=== PATIENT | female | born 2000 | race American Indian/Alaskan Native ===

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

== ENCOUNTER 2021-12-24 01:52 | Emergency (ER) | payer MEDICAID, OTHER ==
[2021-12-24] MEDS ORDERED: IBUPROFEN 600 MG TAB PO ONE (02:12)
--- NOTE | 2021-12-24 02:17 | Emergency Department Report ---
ED Eye Problem HPI - General Chief complaint: Eye Problems Stated complaint: LT EYE PAIN Source: patient Mode of arrival: Ambulatory Limitations: No Limitations - History of Present Illness Initial comments: Patient is a 21-year-old -[place] female with no past medical history presents to the ED with complaint of acute onset persistent nontraumatic left eye pain with tearing and purulent discharge, blurry vision and headache for the last 12 hours. Patient states that the pain has been progressively getting worse over the last 12 hours. Patient states that no one else at home is had similar symptoms. Patient denies vision loss, dizziness, syncope, traumatic injury, nasal and sinus congestion, chest pain or shortness of breath, cough, ear pain, fever and chills. MD chief complaint: eye pain (LEFT ), eye redness, vision change (blurry) -: Sudden, hour(s) (12) Onset Description: sudden, unknown, awoke with symptoms Location: left eye Place: home If Injury: none Eye Symptoms: burning, redness, pain, discharge, photophobia Severity: severe Severity scale (0 -10): 7 If Pain, Quality: sharp, burning, throbbing Consistency: constant Associated Symptoms: headache. denies: neck pain, nausea/vomiting, cough, rhinorrhea, fever, shortness of breath Treatments Prior to Arrival: none - Related Data Patient Tetanus UTD: Yes Previous Rx's Medication Instructions Recorded Last Taken Type Gentamicin 0.3% Ophth Soln 1 drops OP Q4H #5 ml 12/24/21 Unknown Rx Ibuprofen [Motrin] 600 mg PO Q8H PRN #24 tablet 12/24/21 Unknown Rx Allergies Allergy/AdvReac Type Severity Reaction Status Date / Time No Known Allergies Allergy Unverified 06/03/19 09:26 ED Review of Systems ROS: Stated complaint: LT EYE PAIN Other details as noted in HPI Constitutional: denies: chills, fever Eyes: eye pain (left eye), eye discharge (left eye purulent discharge and tearing), vision change (blurry) ENT: denies: ear pain, throat pain Respiratory: denies: cough, shortness of breath, wheezing Cardiovascular: denies: chest pain, palpitations Endocrine: no symptoms reported Gastrointestinal: denies: abdominal pain, nausea, diarrhea Genitourinary: denies: urgency, dysuria, discharge Musculoskeletal: denies: back pain, joint swelling, arthralgia Skin: denies: rash, lesions Neurological: headache. denies: weakness, paresthesias Psychiatric: anxiety. denies: depression Hematological/Lymphatic: denies: easy bleeding, easy bruising ED Past Medical Hx - Social History Smoking Status: Never Smoker Substance Use Type: None - Medications Home Medications: Home Medications Medication Instructions Recorded Confirmed Last Taken Type Gentamicin 0.3% Ophth Soln 1 drops OP Q4H #5 ml 12/24/21 Unknown Rx Ibuprofen [Motrin] 600 mg PO Q8H PRN #24 tablet 12/24/21 Unknown Rx ED Physical Exam - General Limitations: No Limitations General appearance: alert, in no apparent distress, in distress - Head Head exam: Present: atraumatic, normocephalic, normal inspection - Eye Eye exam: Present: PERRL, EOMI, other (mildly erythematous left conjunctiva with tearing and mild purulent discharge) Pupils: Present: normal accommodation - ENT ENT exam: Present: normal exam, normal orophraynx, mucous membranes moist, TM's normal bilaterally, normal external ear exam - Neck Neck exam: Present: normal inspection, full ROM. Absent: tenderness - Respiratory Respiratory exam: Present: normal lung sounds bilaterally. Absent: respiratory distress, wheezes, rales, stridor, chest wall tenderness, accessory muscle use - Cardiovascular Cardiovascular Exam: Present: normal rhythm, bradycardia, normal heart sounds. Absent: systolic murmur, diastolic murmur, rubs, gallop - GI/Abdominal GI/Abdominal exam: Present: soft, normal bowel sounds. Absent: tenderness, guarding, rigid, hyperactive bowel sounds, organomegaly - Extremities Exam Extremities exam: Present: normal inspection, full ROM, normal capillary refill. Absent: tenderness, pedal edema, joint swelling - Back Exam Back exam: Present: normal inspection, full ROM. Absent: tenderness, CVA tenderness (R), CVA tenderness (L), muscle spasm, paraspinal tenderness, vertebral tenderness, rash noted - Neurological Exam Neurological exam: Present: alert, oriented X3, CN II-XII intact, normal gait, reflexes normal - Psychiatric Psychiatric exam: Present: normal affect, normal mood - Skin Skin exam: Present: warm, dry, intact, normal color. Absent: rash ED Course Vital Signs 12/24/21 01:57 Temperature 98.8 F Pulse Rate 57 L Respiratory 18 Rate Blood Pressure 120/76 O2 Sat by Pulse 100 Oximetry ED Medical Decision Making - Medical Decision Making This is a 21-year-old -[place] female with no past medical history presents to the ED with complaint of acute onset persistent nontraumatic left eye pain with tearing and purulent discharge, blurry vision and headache for the last 12 hours. Patient states that the pain has been progressively getting worse over the last 12 hours. Patient states that no one else at home is had similar symptoms. In the ED, patient is alert and oriented x3 and is not in any distress. Patient was treated in the ED for pain, and based on the history and physical exam findings, the patient symptoms are likely due to viral versus bacterial conjunctivitis in the absence of a history of traumatic injury to the left eye. On reevaluation, patient's pain is well controlled medication. Patient will discharge home on medications and advised to follow-up with her primary care physician or chairman and chief executive officer Dr. Ritchie for further evaluation. Patient is advised to contact Dr. Ritchie's office first thing in the morning on Saturday, December 25, 2021 to schedule a follow-up appointment. Patient advised return to the ED immediately if symptoms get worse. - Differential Diagnosis bacterial conjunctivitis; viral conjunctivitis; corneal abrasion Critical care attestation.: If time is entered above; I have spent that time in minutes in the direct care of this critically ill patient, excluding procedure time. ED Disposition Clinical Impression: Acute left eye pain Conjunctivitis of left eye Qualifiers: Conjunctivitis type: acute Acute conjunctivitis type: unspecified Qualified Code(s): H10.32 - Unspecified acute conjunctivitis, left eye Disposition: 01 HOME / SELF CARE / HOMELESS Is pt being admited?: No Does the pt Need Aspirin: No Condition: Stable Instructions: Bacterial Conjunctivitis, Adult, [id number], Viral Conjunctivitis, Adult Additional Instructions: Apply the medication to the affected eye, take pain medication as needed by mouth. Follow-up with the chairman and chief executive officer Dr. Ritchie in 3 to 5 days for reevaluation. Contact Dr. Ricthie's office first in the morning on Saturday, December 25, 2021 to schedule a follow-up appointment. Return to the ED immediately if symptoms get worse. Prescriptions: Gentamicin 0.3% Ophth Soln 1 drops OP Q4H #5 ml Ibuprofen [Motrin] 600 mg PO Q8H PRN #24 tablet PRN Reason: Pain Referrals: HAYDEE RITCHIE MD [Staff Physician] - 3-5 Days Time of Disposition: 02:20 Print Language: CITIZEN OF [place]
[2021-12-24 02:50] VITALS: BP 118/74
== END 2021-12-24 03:06 | disposition home or self-care (01) ==
LOC: ED 01:52
DX: H57.12 Ocular pain, left eye (principal); H10.32 Unspecified acute conjunctivitis, left eye
CPT/HCPCS: 99282